=== PATIENT | female | born 1960 | race African-American/Black ===

== ENCOUNTER 2021-07-02 11:44 | Emergency (ER) | payer OTHER ==
[~2021-07-02] VITALS: Ht 170.2 cm; Wt 75.0 kg
[~2021-07-02 11:44] MED LIST: ASPIRIN
[2021-07-02] MEDS ORDERED: ONDANSETRON HCL 4MG/2ML INJ IV STA ×2 (11:57→12:56)
[2021-07-02] MEDS ORDERED: MORPHINE SULFATE 4 MG/ML CPJ (NOT FOR IM USE) IV STA ×2 (11:57→12:56)
[2021-07-02] MEDS ORDERED: SODIUM CHLORIDE 0.9% 1,000 ML IV ONE (12:00)
[2021-07-02 12:16] LABS: BASOPHILS % 0.7 % (0.0-2.0); EOSINOPHILS % 13.6 % (0.0-5.0); HEMATOCRIT. 33.5 % (36.0-48.0); HEMOGLOBIN. 11.2 g/dL (12.0-16.0); LYMPHOCYTES % 15.2 % (20.0-50.0); MEAN CORPUSCULAR HEMOGLOBIN 33.3 pg (28.0-32.0); MEAN CORPUSCULAR VOLUME 99.8 fL (81.0-99.0); MEAN PLATELET VOLUME 7.4 fl (7.4-10.4); MONOCYTES % 7.4 % (2.0-8.0); NEUTROPHILS % 63.1 % (40.0-76.0); PLATELET 209 x1000/uL (130-400); RED BLOOD CELL COUNT 3.35 mill/uL (4.2-5.4); RED CELL DISTRIBUTION WIDTH 23.9 % (11.6-14.6)
[2021-07-02 12:21] LABS: CHLORIDE 108 mEq/L (98-107)
[2021-07-02] MEDS ORDERED: MORPHINE SULFATE 2 MG/ML CPJ (NOT FOR IM USE) IV NR (12:30)
[2021-07-02 12:35] LABS: PROTHROMBIN TIME 10.4 sec (9.6-11.0)
[2021-07-02 12:43] LABS: PLATELET ESTIMATE NORMAL
[2021-07-02] MEDS: MORPHINE SULFATE 2 MG/ML CPJ (NOT FOR IM USE) IV NR ×2 (13:20→13:35)
[2021-07-02 15:08] VITALS: BP 132/69
== END 2021-07-02 15:23 | disposition short-term general hospital (02) ==
LOC: ER 11:53
DX: R10.33 Periumbilical pain (principal); R11.2 Nausea with vomiting, unspecified; C80.1 Malignant (primary) neoplasm, unspecified
CPT/HCPCS: 36415; 74176; 80053; 83690; 85025; 85610; 96361; 96374; 96375; 96376; 99291; J2270; J2405; J7030

== ENCOUNTER 2022-07-17 01:46 | Emergency (ER) | payer OTHER ==
[~2022-07-17] VITALS: Ht 167.6 cm; Wt 55.0 kg
[2022-07-17] MEDS: HYDROMORPHONE HCL/PF 2MG/ML CPJ IV PRN ×2 (03:37→06:06)
[2022-07-17 11:35] VITALS: BP 161/98
== END 2022-07-17 12:02 | disposition short-term general hospital (02) ==
LOC: ER 01:46
DX: M25.551 Pain in right hip (principal); Z85.6 Personal history of leukemia; Z20.822 Contact with and (suspected) exposure to COVID-19
CPT/HCPCS: 72170; 73552; 73560; 87426; 96374; 99285; J1170

== ENCOUNTER 2022-07-30 23:37 | Emergency (ER) | payer OTHER ==
[~2022-07-30] VITALS: Ht 165.1 cm; Wt 41.0 kg
[2022-07-31] MEDS ORDERED: MORPHINE SULFATE 4 MG/ML CPJ (NOT FOR IM USE) IV ONE
[2022-07-31] MEDS ORDERED: ONDANSETRON HCL 4MG/2ML INJ IV ONE
[2022-07-31 01:52] LABS: HEMATOCRIT 31.4 % (36.0-48.0); HEMOGLOBIN 9.7 g/dL (12.0-16.0); MEAN CORPUSCULAR HEMOGLOBIN 30.2 pg (28.0-32.0); PLATELET 98 x1000/uL (130-400); RED CELL DISTRIBUTION WIDTH 21.2 % (11.6-14.6)
[2022-07-31 01:56] LABS: CHLORIDE 106 mEq/L (98-107)
[2022-07-31 02:24] VITALS: BP 149/98
[2022-07-31] MEDS ORDERED: LACTULOSE ENEMA 1,000ML BOTTLE PR STA (02:24)
[2022-07-31] MEDS ORDERED: LACTULOSE 300 ML in WATER FOR IRRIGATION,STERILE 700 ML IR NR (02:25)
[2022-07-31] MEDS ORDERED: ONDA4TAB11 PO (02:26)
[2022-07-31] MEDS ORDERED: NA PHOS,M-B/NA PHOS,DI-BA ENEMA 118ML PR ONE (02:30)
[2022-07-31] MEDS ORDERED: SODIUM CHLORIDE 0.9% 1,000 ML IV ONE (02:45)
== END 2022-07-31 06:57 | disposition home or self-care (01) ==
LOC: ER 23:40
DX: R11.2 Nausea with vomiting, unspecified (principal); C79.9 Secondary malignant neoplasm of unspecified site; Z88.0 Allergy status to penicillin
CPT/HCPCS: 36415; 80053; 85027; 96374; 96375; 99284; J2270; J2405; J7030; Z7610